=== PATIENT | female | born 1990 | race African-American/Black ===

== ENCOUNTER 2021-06-25 11:54 | Emergency (ER) | payer MEDICAID, SELFPAY ==
--- NOTE | ~2021-06-25 | CT_ITS ---
EXAMINATION: CT brain wo con DATE: 06/25/2021 12:47 INDICATION: Dizziness. Migraine headaches.] TECHNIQUE: Computed tomography (CT) of the head was performed without intravenous contrast. The mA wa s adjusted according to patient size. Iterative reconstruction technique was employed. Exam dose: 52 9.67 mGy-cm total exam DLP. COMPARISON: 08/05/2017 CT brain FINDINGS: No intracranial mass lesion or hemorrhage or cerebrovascular accident. No midline shift or mass effect. Normal ventricular size. Normal rivera-white matter differentiation. No subdural or epidural hematoma. No orbital mass lesion. No fracture or bone destruction of the cranial vault. Included paranasal sinuses and mastoid air cell s are normally developed and aerated. IMPRESSION: No significant abnormality Reviewed, dictated and finalized at [facility] Reviewed, dictated and finalized at [facility]. IMPRESSION: No significant abnormality
[2021-06-25 11:59] VITALS: BP 135/95; PULSE 98; RESP 18; TEMP 36.3; O2SAT 100
[2021-06-25 12:39] LABS: Basophils Percent Auto 0.2 % (0.2-1.2); Eosinophils Percent Auto 0.5 % (0-4.4); Hematocrit 41.5 % (37.0-47.0); Hemoglobin 13.7 g/dL (12.0-15.0); Lymphocytes Absolute Auto 1.61 K/mm3 (0.9-3.2); Lymphocytes Percent Auto 39.5 % (18.3-44.2); Mean Corpuscular Hemoglobin 27.5 pg (26-34); Mean Corpuscular Volume 83.2 fl (80-100); Mean Platelet Volume 8.9 fl (7.4-10.4); Monocytes Absolute Auto 0.2 K/mm3 (0.1-0.6); Monocytes Percent Auto 5.6 % (2.6-8.5); Neutrophils Absolute Auto 2.2 K/mm3 (1.3-6.7); Neutrophils Percent Auto 54.2 % (45.5-73.1); Platelet Count Result 218 k/mm3 (150-375); Red Blood Count 4.99 M/mm3 (4.2-5.4); Red Cell Distribution Width 13.9 % (11.5-14.5); White Blood Count 4.1 K/mm3 (4.5-10.0)
--- NOTE | 2021-06-25 12:44 | ED.GENADULT ---
HPI - General Adult General Chief complaint: Unspecified Stated complaint: UTI, Abcess, Dental pain Time Seen by Provider: 06/25/21 12:07 History of Present Illness HPI narrative: 30-year-old female presents the emergency room with multiple longstanding medical problems including generalized weakness. She has also been experiencing intermittent unilateral weakness for an unknown period of time. Patient is also complaining of dental pain. Stating that she has multiple wisdom teeth that need to be removed. Reports that the dental pain is radiating into her ears and also causing her to have a headache. 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 States she is under significant amount of stress. Finally patient is also complaining dysuria Related Data Allergies Allergy/AdvReac Type Severity Reaction Status Date / Time codeine Allergy Unknown Verified 06/25/21 12:09 le[facility]iracetam [From [facility] Allergy Unknown Verified 06/25/21 12:09 Review of Systems Review of Systems: CONSTITUTIONAL: Denies fever, chills, or sweats. EYES: Denies visual changes, redness, or discharge. ENT: Denies rhinorrhea, congestion, sore throat, or otalgia. Reports dental pain CARDIOVASCULAR: Denies chest pain, palpitations, or edema. RESPIRATORY: Denies cough or dyspnea. GASTROINTESTINAL: Denies abdominal pain, nausea, vomiting, or diarrhea. GENITOURINARY: Reports dysuria. SKIN: Denies rash or itching. MUSCULOSKELETAL: Denies back pain, joint pain, or myalgia. NEUROLOGIC: Reports headache, weakness PSYCHIATRIC: Denies anxiety or depression. Exam Narrative: GENERAL: Well-appearing, well-nourished, and in no acute distress. HEAD: Normocephalic, atraumatic. EYES: PERRLA and EOMI. ENT: Nares clear, no rhinorrhea or epistaxis. Mucous membranes moist. Bilateral TMs clear nonbulging; impacted third molars NECK: Supple. No adenopathy or masses. No carotid bruits or JVD CHEST: Clear to auscultation. No respiratory distress. No wheezes rales or rhonchi HEART: Regular rate and rhythm. No murmur heard. Normal peripheral pulses. ABDOMEN: Soft, nontender, nondistended, normal active bowel sounds. EXTREMITIES: Normal range of motion. No edema. SKIN: Warm, dry, no rash. NEURO: No focal deficits. Alert and oriented x3. PSYCH: Normal mood and affect. Course Vital Signs Vital signs: Vital Signs Temperature 36.3 C L 06/25/21 11:59 Pulse Rate 98 06/25/21 11:59 Respiratory Rate 18 06/25/21 11:59 Blood Pressure 135/95 H 06/25/21 11:59 Pulse Oximetry 100 06/25/21 11:59 Temperature 36.3 C L 06/25/21 11:59 Pulse Rate 98 06/25/21 11:59 Respiratory Rate 18 06/25/21 11:59 Blood Pressure 135/95 H 06/25/21 11:59 Pulse Oximetry 100 06/25/21 11:59 Medical Decision Making MDM Narrative Medical decision making narrative: 30-year-old female presented the emergency room with ongoing dizziness lightheadedness and intermittent unilateral weakness. Patient does have a seizure disorder, which she says she is no longer is medicated for. States last seizure was over a year ago. Patient is also suffering from wisdom tooth pain, states that the pain has been rating into her ears and up into her head causing her. Her CT was normal showing no acute intracranial abnormalities. CBC and CMP were both unremarkable. UA was clean, showing no signs of urinary tract infection. 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 Dizziness could be caused by 1 of 2 things he has a dental pain or stress from her recent move to [place] from [place], starting school, and . Discussed with patient Ravinder, started on medication for dizziness, stressed the importance of having to dump breastmilk following taking this medication. Medical Records Medical records reviewed: Yes I reviewed the external
[2021-06-25 12:54] LABS: Alanine Aminotransferase 14 U/L (4-35); Albumin Level 4.5 g/dL (3.5-5.1); Alkaline Phosphatase 65 U/L (38-126); Anion Gap 8 mmol/L (8-16); Aspartate Amino Transferase 34 U/L (14-36); Bilirubin,Total 0.4 mg/dL (0.2-1.3); Blood Urea Nitrogen 13 mg/dL (7-17); Calcium 9.1 mg/dL (8.4-10.2); Carbon Dioxide 27 mmol/L (22-30); Chloride 104 mmol/L (98-107); Estimated CRCL calculation 126 ml/min; Estimated Glomerular Filt Rate > 60; Glucose 100 mg/dL (65-110); Potassium 3.8 mmol/L (3.4-5.0); Sodium 139 mmol/L (137-145)
[2021-06-25 13:24] LABS: Appearance Urine Clear (Clear); Bilirubin Urine 1+ (Negative); Blood Urine Negative (Negative); Color Urine Yellow (Yellow); Glucose Urine UA Negative (Negative); Ketones Urine Negative (Negative); Leukocyte Esterase Ur Negative LEU/UL (Negative); Nitrate Urine Negative (Negative); Protein Urine Negative (Negative); Specific Grav Ur 1.025 (1.001-1.035); Urobilinogen Urine 0.2 mg/dL (<2.0); pH Urine 7.5 (5.0-9.0)
[2021-06-25 13:28] LABS: Add Urine Microscopic? YES; Mucus Urine Few /lpf; RBC Urine 0-2 /hpf (0-2); Squamous Epithelial Cell Urine Few /hpf (Few); WBC Urine 0-3 /hpf
[2021-06-25 14:00] VITALS: BP 151/94; PULSE 84; RESP 16; O2SAT 99
== END 2021-06-25 14:01 | disposition home or self-care (01) ==
PROVIDERS: Emergency Provider Nurse Practitioner Family
DX: R42 Dizziness and giddiness (principal); K08.89 Other specified disorders of teeth and supporting structures; R53.1 Weakness
CPT/HCPCS: 36415; 70450; 80053; 81001; 81025; 85025; 99284

== ENCOUNTER 2022-08-20 08:59 | Emergency (ER) | payer OTHER, SELFPAY ==
--- NOTE | ~2022-08-20 | XR_ITS ---
EXAMINATION:XR cervical spine 4-5V DATE: 08/20/2022 09:58 INDICATION: Posterior right-sided neck pain post fall TECHNIQUE: AP, lateral, lateral swimmers and odontoid views of the cervical spine are provided. COMPARISON: None FINDINGS: Mild cervicothoracic levocurvature with mild reversal of the normal cervical lordosis which could be positional or due to muscle spasm. No spondylolisthesis or facet subluxation. Odontoid is intact. No rmal atlantoaxial interval. Vertebral body heights are normal. Disc spaces are normal. Mild cervical facet osteoarthritis at C2-C3 and C3-C4. Uncovertebral osteoarthritis, mild on the right and minimal on the left at C3-C4 and minimal on the right at C4-C5. Prevertebral soft tissues are normal. IMPRESSION: 1. Mild cervical thoracic levocurvature and mild reversal of the normal cervical lordosis which could be positional or due to muscle spasm. No other acute osseous abnormality. Reviewed, dictated and finalized at [facility]. IMPRESSION: 1. Mild cervical thoracic levocurvature and mild reversal of the normal cervica l lordosis which could be positional or due to muscle spasm. No other acute oss eous abnormality.
[2022-08-20 09:13] VITALS: BP 124/68; PULSE 88; RESP 16; TEMP 36.3; O2SAT 99
[2022-08-20 09:14] VITALS: BP 124/68; PULSE 88; RESP 16; TEMP 36.3; O2SAT 99
--- NOTE | 2022-08-20 09:39 | ED.NECK ---
HPI - Neck Pain/Injury General Chief Complaint: Neck Pain/Injury Stated Complaint: back right neck pain; traveling down spine Source: patient and RN notes reviewed History of Present Illness HPI Narrative: 31-year-old female presents to urgent care with complaints of posterior and right-sided neck pain that radiates to her right shoulder blade. Patient states around 3:00 a.m. she got up the bathroom when she got dizzy and fell forward, hitting the front of her head on the wall. Patient states she has a chronic history of dizziness and blurry vision which she is seeing a neurologist for next month. Patient denies any LOC this morning. Denies any numbness, tingling, or vomiting. Patient is not taking anything for her symptoms. Some parts of this dictation were generated by voice recognition software and may contain typographical and/or grammatical inaccuracies. Related Data Home Medications Medication Instructions Recorded Confirmed albuterol sulfate 90 mcg/actuation 2 puff inhalation Q6-8H PRN 08/20/22 08/20/22 aerosol inhaler Wheezing triamterene 37.5 1 tablet PO DAILY 08/20/22 08/20/22 mg-hydrochlorothiazide 25 mg tablet venlafaxine 75 mg capsule,extended 75 mg PO DAILY 08/20/22 08/20/22 release 24 hr Allergies Allergy/AdvReac Type Severity Reaction Status Date / Time codeine Allergy Intermediate Itching Verified 08/20/22 09:27 levetiracetam [From [facility]] Allergy Intermediate Other Verified 08/20/22 09:12 Review of Systems Review of Systems: CONSTITUTIONAL: Denies fever, chills, or sweats. EYES: reports blurry vision ENT: Denies otalgia and sore throat CARDIOVASCULAR: Denies chest pain, palpitations, or edema. RESPIRATORY: Denies cough or dyspnea. GASTROINTESTINAL: Denies abdominal pain, nausea, vomiting, or diarrhea. GENITOURINARY: Denies dysuria or hematuria. SKIN: Denies rash or itching. 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 PMFSH Comments At the time of my signature, I reviewed and agree with the nursing past medical, surgical, social, and family history. There is no relevant family history pertinent to the patient complaint. Exam Narrative: GENERAL: This is a well-nourished, well-developed patient, in no apparent distress. HEAD: normocephalic, atraumatic. EYES: Sclera clear/white. Vision is grossly intact. EARS: External ears normal, auditory canals clear and without drainage, TMs normal without perforation. Hearing grossly intact. NOSE: External nose normal with no obvious nasal discharge, nares without redness, no rhinorrhea. THROAT: Mucous membranes moist, posterior pharynx clear. NECK: Neck supple, non-tender without lymphadenopathy, masses or thyromegaly. patient has limited range of motion When looking down and to the right. CARDIOVASCULAR: Regular rate RESPIRATORY: no distress SKIN: warm, intact with no suspicious lesions or rash, good texture and turgor. NEURO: awake, alert, and oriented to person, place and time. There were no obvious focal neurologic abnormalities. EXTREMITIES: No clubbing, cyanosis, or edema. No joint tenderness, effusion, or edema noted. BACK: Nontender without deformity or crepitance. No flank tenderness. Course Course Level of Care: Express Care Visit Vital Signs Vital signs: Vital Signs Temperature 97.4 F L 08/20/22 09:13 Pulse Rate 88 08/20/22 09:13 Respiratory Rate 16 08/20/22 09:13 Blood Pressure 124/68 08/20/22 09:13 Pulse Oximetry 99 08/20/22 09:13 Oxygen Delivery Room Air 08/20/22 09:13 Temperature 97.4 F L 08/20/22 09:14 Pulse Rate 88 08/20/22 09:14 Respiratory Rate 16 08/20/22 09:14 Blood Pressure 124/68 08/20/22 09:14 Pulse Oximetry 99 08/20/22 09:14 Oxygen Delivery Room Air 08/20/22 09:14 reviewed MDM - Neck Pain/Injury MDM Narrative Medical decision making narrative: may take
== END 2022-08-20 10:43 | disposition home or self-care (01) ==
PROVIDERS: Emergency Provider Nurse Practitioner Family; PCP Internal Medicine
DX: S16.1XXA Strain of muscle, fascia and tendon at neck level, initial encounter (principal); W19.XXXA Unspecified fall, initial encounter; I10 Essential (primary) hypertension; J45.909 Unspecified asthma, uncomplicated; H81.09 Meniere's disease, unspecified ear
CPT/HCPCS: 72050; 99213; G0463